=== PATIENT | male | born 1935 | race Two or more races ===

== ENCOUNTER 2025-04-10 12:10 | Emergency (ER) | payer OTHER | END 2025-04-10 13:45 | disposition home or self-care (01) | LOC: MW.ED 12:10 | DX: K64.9 Unspecified hemorrhoids (principal); I10 Essential (primary) hypertension; E78.00 Pure hypercholesterolemia, unspecified; Z79.01 Long term (current) use of anticoagulants; Z79.02 Long term (current) use of antithrombotics/antiplatelets; Z79.890 Hormone replacement therapy; Z79.899 Other long term (current) drug therapy | CPT/HCPCS: 99282 ==